=== PATIENT | female | born 1995 | race Caucasian/White ===

== ENCOUNTER 2018-09-30 15:17 | Day surgery (SDC) | payer OTHER ==
[~2018-09-30] VITALS: Ht 162.6 cm; Wt 77.3 kg
[2018-09-30 15:49] VITALS: BP 134/87
[2018-09-30] MEDS ORDERED: LACTATED RINGERS 1,000 ML IV SCH (15:54)
[2018-09-30] MEDS ORDERED: MULTIVITAMIN PO (15:55)
[2018-09-30] MEDS ORDERED: BIRTH CONTROL PILL PO (15:55)
[2018-09-30] MEDS ORDERED: MIDAZOLAM 1 MG/ML, 2ML ONE (16:04)
[2018-09-30] MEDS ORDERED: FENTANYL PF 250 MCG/5ML ONE (16:04)
[2018-09-30] MEDS ORDERED: FENTANYL PF 100 MCG/2ML IV PRN (17:00)
[2018-09-30] MEDS ORDERED: LABETALOL 5MG/ML, 20ML IV PRN (17:00)
[2018-09-30] MEDS ORDERED: ACETAMINOPHEN 325 MG TABLET PO PRN (17:00)
[2018-09-30] MEDS ORDERED: HYDROmorphone 2 MG/ML, 1ML IVPush PRN (17:00)
[2018-09-30] MEDS ORDERED: hydrALAzine 20 MG/ML, 1ML IV PRN (17:00)
[2018-09-30] MEDS ORDERED: DEXAMETHASONE 4 MG/ML, 1ML ONE ×2 (17:00→17:12)
[2018-09-30] MEDS ORDERED: MEPERIDINE/PF 25MG/0.5ML IVPush PRN (17:00)
[2018-09-30] MEDS ORDERED: PROMETHAZINE 25 MG/ML, 1ML IV PRN (17:00)
[2018-09-30] MEDS ORDERED: OXYcodone 5 MG/5 ML ORAL.SOL UDC PO PRN (17:00)
[2018-09-30] MEDS ORDERED: ONDANSETRON 2MG/ML, 2ML IV PRN (17:00)
[2018-09-30] MEDS ORDERED: PROPOFOL 10 MG/ML, 20ML ONE ×2 (17:01→17:57)
[2018-09-30] MEDS ORDERED: CEFAZOLIN 1,000 MG ONE (17:01)
[2018-09-30] MEDS ORDERED: ONDANSETRON 2MG/ML, 2ML ONE (17:12)
[2018-09-30] MEDS ORDERED: KETOROLAC 30 MG/1 ML ONE (17:51)
[2018-09-30] MEDS ORDERED: OXYcodone 5 MG/5 ML ORAL.SOL UDC ONE (18:20)
[2018-09-30] MEDS ORDERED: ACETAMINOPHEN 650 MG/20.3 ML UDC ONE (18:20)
[2018-09-30] MEDS ORDERED: FENTANYL PF 100 MCG/2ML ONE (18:27)
[2018-09-30 19:15] VITALS: BP 123/63
== END 2018-09-30 20:25 | disposition home or self-care (01) ==
LOC: OR 15:17 → 4NOR 19:50 → OR 20:25
PROVIDERS: ATTEND Orthopaedic Surgery
DX: S66.126A Laceration of flexor muscle, fascia and tendon of right little finger at wrist and hand level, initial encounter (principal); Z72.89 Other problems related to lifestyle; Z79.899 Other long term (current) drug therapy; X58.XXXA Exposure to other specified factors, initial encounter; Y93.89 Activity, other specified; Y92.89 Other specified places as the place of occurrence of the external cause; Y99.8 Other external cause status
CPT/HCPCS: 26370; 81025; C1713; J0690; J1100; J1885; J2250; J2405; J2704; J3010; J7120; G0378